=== PATIENT | male | born 1970 | race Caucasian/White ===

== ENCOUNTER 2020-05-07 17:20 | Emergency (ER) | payer SELFPAY ==
[2020-05-07 17:21] VITALS: BP 123/76; PULSE 60; RESP 18; TEMP 36.9; O2SAT 94; BMI 22.9
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
[2020-05-07 18:15] LABS: Basophils # 0.1 10^3/uL (0.0-0.1); Eosinophils # 0.5 10^3/uL (0.0-0.8); Eosinophils % 3.8 %; Hematocrit 46.5 % (42.0-52.0); Hemoglobin 15.6 g/dL (11.7-16.6); Lymphocytes # 3.9 10^3/uL (0.8-4.8); Lymphocytes % 31.4 %; Mean Corpuscular HGB Conc 33.5 g/dL (30.0-36.0); Mean Corpuscular Hemoglobin 29.9 pg (28.0-34.0); Mean Corpuscular Volume 89.3 fL (80-94); Mean Platelet Volume 10.2 fL (7.4-10.4); Monocytes # 1.2 10^3/uL (0.2-0.9); Neutrophils # 6.59 10^3/uL (1.8-7.7); Nucleated Red Blood Cells % 0 %; Platelet Count 302 10^3/cmm (130-400); Red Blood Count 5.21 10^6/uL (4.1-5.3); Red Cell Distribution Width 14.7 % (12.1-15.1); White Blood Count 12.4 10^3/uL (4.0-10.0)
[2020-05-07 18:18] LABS: Alanine Aminotransferase 28 U/L (0-41); Albumin Level 3.8 g/dL (3.5-5.2); Alkaline Phosphatase 83 IU/L (40-130); Blood Urea Nitrogen 19 mg/dL (6-20); Carbon Dioxide 24 mmol/L (22-29); Chloride 106 mmol/L (98-107); Globulin 2.4 g/dL (1.3-4.6); Glomerular Filtration Rate 119.4 mL/min (90-130); Glucose 74 mg/dL (65-115); Osmolality Calculated 283 mOsm/kg (285-295); Sodium 136 mmol/L (136-145); Total Bilirubin 0.2 mg/dL (0.15-1.2); Total Protein 6.2 g/dL (6.6-8.7)
[2020-05-07 18:31] VITALS: RESP 18
[2020-05-07] MEDS: morphine 4 mg/mL SDV 1 mL 2 MG IVP (18:31)
[2020-05-07] MEDS: ondansetron 2 mg/ML SDV 2 mL 4 MG IVP (18:31)
[2020-05-07 18:33] LABS: Anion Gap 9.8 (5-19); Aspartate Amino Transferase 27 U/L (0-40); Potassium 3.8 mmol/L (3.5-5.1)
[2020-05-07 19:06] VITALS: BP 94/66; PULSE 59; RESP 21; O2SAT 98
== END 2020-05-07 18:55 | disposition home or self-care (01) ==
PROVIDERS: Emergency Medicine; Emergency Provider Emergency Medicine
DX: S22.32XA Fracture of one rib, left side, initial encounter for closed fracture (principal); S32.039A Unspecified fracture of third lumbar vertebra, initial encounter for closed fracture; V89.2XXA Person injured in unspecified motor-vehicle accident, traffic, initial encounter
CPT/HCPCS: 70450; 71250; 72125; 73502; 74176; 80053; 85025; 96374; 96375; 99283; J2270; J2405

== ENCOUNTER 2022-01-24 10:02 | Outpatient (CLI) | payer MEDICAID, SELFPAY ==
--- NOTE | 2022-01-24 10:12 | XR_ITS ---
WS: [id number] Chest 2 views, 01/24/2022 Clinical Data: COUGH/TOBACCO DEPENDENCE Comparison: None. Findings: No nodules, masses or effusions are seen. The heart is normal. The pulmonary vascularity is not increased. No pneumonia or pneumothorax is seen. XR/XR chest 2V* [id number] Impression: Negative chest.
== END 2022-01-24 10:03 | disposition home or self-care (01) ==
LOC: LAB 10:06
PROVIDERS: PCP Nurse Practitioner Family; Visit Provider Nurse Practitioner Family
DX: R05.9 Cough, unspecified (principal); F17.200 Nicotine dependence, unspecified, uncomplicated
CPT/HCPCS: 71046

== ENCOUNTER → 2023-04-01 10:38 | Outpatient (BNVA) | payer MEDICAID, SELFPAY | PROVIDERS: PCP Nurse Practitioner Family; Visit Provider Nurse Practitioner Family | DX: R07.9 Chest pain, unspecified (principal) | CPT/HCPCS: 80053; 84484; 85025 ==

== ENCOUNTER 2023-04-16 06:00 | Outpatient (RCR) | payer MEDICAID, SELFPAY | END 2023-04-23 23:59 | disposition home or self-care (01) | LOC: APT 06:00 | PROVIDERS: PCP Nurse Practitioner Family; Visit Provider Nurse Practitioner Family | DX: M54.9 Dorsalgia, unspecified (principal); G89.29 Other chronic pain | CPT/HCPCS: 97161 ==

== ENCOUNTER 2023-04-21 09:09 | Outpatient (CLI) | payer MEDICAID, SELFPAY ==
--- NOTE | 2023-04-21 09:00 | CT_ITS ---
WS: [id number] CT chest wo con [id number] HISTORY: R91.1 - Solitary pulmonary nodule TECHNIQUE: Axial imaging performed through the thorax. Coronal and sagittal reformats are submitted. All CT scans at [facility] use at least one of these dose optimization techniques: automated exposure control; mA and/or kV adjustment per patient size (includes targeted exams where dose is mat ched to clinical indication); or iterative reconstruction. CONTRAST: None DLP: 463.98 mGy.cm COMPARISON: 05/07/2020 Lungs and central airway: Mild pulmonary hyperexpansion. Centrilobular emphysema. There is very mild hazy attenuation in the RIGHT upper lobe which has progressed since the prior study. Mild peripheral interstitial thickening and groundglass attenuation has progressed. Reidentified is the solid nodule along the RIGHT minor fissure measuring 8 mm. Very slightly increased in size since 2020. Reidentifie d is a 5 mm nodule in the RIGHT lower lobe that has slightly increased in size by only 1 to 2 mm sinc e 2020. No additional nodule or mass. Pleura: Normal. No pleural effusion. Heart and pericardium: Normal size heart with no pericardial effusion. Mediastinum and harleen: No adenopathy identified. Sensitivity is decreased without IV contrast. There a re few mediastinal and hilar lymph nodes which are not enlarged. Vessels: Normal size aortic and pulmonary artery. No coronary artery calcifications. Chest wall and lower neck: No soft tissue masses. Upper abdomen: Normal. Osseous structures: Mild increase in thoracic kyphosis. Small Schmorl's nodes defects at several leve ls. No destructive bone lesions. IMPRESSION: 1. RIGHT minor fissure nodule and subcentimeter, noncalcified nodule in the RIGHT lower lobe. Both o f these nodules were present in 05/07/2020. With only minimal increase in size by 1 to 2 mm. Favor the se are probably benign. Recommend additional 12-month chest CT follow-up to document long-term stabil ity. 2. Centrilobular emphysema. 3. Mild hazy attenuation and tree-in-bud opacifications throughout the lungs. Favor this is probably related to respiratory bronchiolitis and history of smoking. No dense pneumonia or consolidation. Mo re pronounced than compared to the prior study. 4. No adenopathy.
== END 2023-04-21 09:10 | disposition home or self-care (01) ==
LOC: RAD 09:09
PROVIDERS: PCP Nurse Practitioner Family; Visit Provider Nurse Practitioner Family
DX: R91.8 Other nonspecific abnormal finding of lung field (principal); J43.2 Centrilobular emphysema
CPT/HCPCS: 71250

== ENCOUNTER → 2023-04-22 14:51 | Outpatient (BNVA) | payer MEDICAID, SELFPAY | PROVIDERS: PCP Nurse Practitioner Family; Referring Provider Nurse Practitioner Family; Visit Provider Orthopaedic Surgery | DX: G89.29 Other chronic pain; M48.062 Spinal stenosis, lumbar region with neurogenic claudication; M51.36 Other intervertebral disc degeneration, lumbar region | CPT/HCPCS: 72110 ==

== ENCOUNTER 2023-04-24 06:00 | Outpatient (RCR) | payer MEDICAID, SELFPAY | END 2023-05-22 23:59 | disposition home or self-care (01) | LOC: APT 06:00 | PROVIDERS: PCP Nurse Practitioner Family; Visit Provider Nurse Practitioner Family | DX: M54.9 Dorsalgia, unspecified (principal); G89.29 Other chronic pain | CPT/HCPCS: 97110; 97530 ==

== ENCOUNTER 2023-05-23 06:00 | Outpatient (RCR) | payer MEDICAID, SELFPAY | END 2023-06-22 23:59 | disposition home or self-care (01) | LOC: APT 06:00 | PROVIDERS: PCP Nurse Practitioner Family; Visit Provider Nurse Practitioner Family | DX: M54.9 Dorsalgia, unspecified (principal); G89.29 Other chronic pain | CPT/HCPCS: 97110; 97530 ==

== ENCOUNTER 2023-12-08 06:00 | Outpatient (CLI) | payer MEDICAID, SELFPAY | END 2023-12-08 06:01 | disposition home or self-care (01) | LOC: RAD 12-29 10:30 | PROVIDERS: PCP Nurse Practitioner; Visit Provider Nurse Practitioner | DX: R06.09 Other forms of dyspnea (principal) | CPT/HCPCS: 80053; 80061; 85025 ==

== ENCOUNTER → 2024-02-12 13:47 | Outpatient (BNVA) | payer MEDICAID, SELFPAY | PROVIDERS: PCP Nurse Practitioner; Visit Provider Internal Medicine | DX: R07.9 Chest pain, unspecified (principal); R06.09 Other forms of dyspnea; F17.210 Nicotine dependence, cigarettes, uncomplicated | CPT/HCPCS: 93005 ==

== ENCOUNTER 2024-02-16 13:30 | Outpatient (CLI) | payer MEDICAID, SELFPAY ==
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
== END 2024-02-16 13:34 | disposition home or self-care (01) ==
PROVIDERS: PCP Nurse Practitioner; Visit Provider Internal Medicine
DX: R06.09 Other forms of dyspnea (principal); R07.9 Chest pain, unspecified
CPT/HCPCS: 93306

== ENCOUNTER → 2024-03-08 08:56 | Outpatient (BNVA) | payer MEDICAID, SELFPAY | PROVIDERS: PCP Nurse Practitioner; Visit Provider Nurse Practitioner | DX: R20.2 Paresthesia of skin (principal); R52 Pain, unspecified; M41.9 Scoliosis, unspecified | CPT/HCPCS: 72072 ==

== ENCOUNTER 2024-03-19 09:49 | Outpatient (CLI) | payer MEDICAID, SELFPAY ==
[2024-03-19 09:56] VITALS: BMI 26.4
--- NOTE | 2024-03-19 10:05 | ECG_ITS ---
AppMesh Test Date: 2024-03-19 Pat Name: Miguel Pinzon Department: Room: Gender: Male Learning Coordinator: : 1970 Requested By: Benton Soares Order Number: [id number] Pauile MD: Benton Soares M.D. Interpretive Statements LEXISCAN: Procedure: At the baseline, the blood pressure was 118/77 mmHg with a heart rate of 68 bpm. The electrocardiogram showed normal sinus rhythm, normal axis with normal ST and T's. The Lexiscan was infused over a period of 20 seconds. A total of 0.4 mg of Lexiscan was infused. The stress phase was continued for a total of 5 minutes. Heart rate was at the end of stress phase was 93 bpm and a blood pressure of 116/73 mmHg. The EKG at the peak infusion revealed normal sinus rhythm with no significant ST-T wave changes. Sestamibi was injected 20 seconds after the Lexiscan infusion. Blood pressure at the end of recovery phase was 105/69 mmHg with a heart rate of 82 bpm. EKG showed PVCs Conclusion: 1. Normal EKG response to Lexiscan infusion 2. No Lexiscan induced chest pain or cardiac arrhythmia. 3. Normal blood pressure and heart rate response. 4. Sestamibi/sestamibi perfusion scan pending; see separate report. Electronically Signed On 03-21-2024 21:00:55 GIN CLERK by Benton Soares M.D. [id number]
--- NOTE | 2024-03-19 10:05 | NMCV_ITS ---
NM katy perf SPECT r/s* [id number] Miguel Pinzon Age: 53 Gender: M : 1970 Exam Date: 03/19/2024 10:51 Ordering Phys: Benton Soares M.D ([email or web address]) Technologist: [email or web address] Lopez Exam Location: [facility] Indications: cp STRESS TEST [facility] IMAGE PROTOCOL Radiopharmaceutical Dose (mCi) Administration Site Administered by Rest: Tc-99m 11 IV Debra Bay, WEB CONTENT PRODUCER Sestamibi Stress:Tc-99m 32.9 IV Debra Bay, WEB CONTENT PRODUCER Sestamibi Rest: 19-Mar-2024 60 Discovery 630 Stress: 19-Mar-2024 30 Discovery 630 0.4mg Lexiscan. Images obtained in supine and prone position. SPECT RESULTS Technical Quality: Good Raw Data Analysis: Normal Image Corrections: No attenuation or motion correction applied Summed Stress Score: 2 Summed Rest Score: 0 Summed Difference Score: 2 PERFUSION FINDINGS Small sized area of reduced radiotracer uptake seen in inferolateral wall that resolves on prone imaging. This is consistent with small area of attenuation artifact. No evidence of ischemia. FUNCTIONAL RESULTS (calculated via Gated SPECT) Stress Image LV EF (%): 72 Stress EDV (mL):109 TID: 0.83 Stress ESV (mL):30 FUNCTIONAL FINDINGS: There is normal left ventricular systolic function. IMPRESSIONS 1. Attenuation artifact seen in inferolateral wall. No evidence of ischemia. 2. LV systolic function is normal Benton Soares MD (Electronically Signed) Final Date: 19 March 2024 18:03 S
[2024-03-19] MEDS: regadenoson 0.4 Mg/5 ml Syringe IVP (11:16)
[2024-03-19] MEDS: aminophylline 25 mg/mL SDV 20 mL IVP ×2 (11:23→11:26)
[2024-03-19 11:29] VITALS: BP 105/69; PULSE 76
== END 2024-03-19 09:50 | disposition home or self-care (01) ==
LOC: CDL 09:51
PROVIDERS: PCP Nurse Practitioner; Visit Provider Internal Medicine
DX: R07.9 Chest pain, unspecified (principal); R06.02 Shortness of breath
CPT/HCPCS: 36415; 78452; 93017; 96374; 96375; A9500; J0280; J2785

== ENCOUNTER → 2024-06-11 08:05 | Outpatient (BNVA) | payer MEDICAID, SELFPAY | PROVIDERS: PCP Nurse Practitioner; Visit Provider Nurse Practitioner | DX: Z12.5 Encounter for screening for malignant neoplasm of prostate (principal); J43.2 Centrilobular emphysema; Z13.6 Encounter for screening for cardiovascular disorders | CPT/HCPCS: 80053; 80061; 85025; G0103 ==

== ENCOUNTER 2024-06-29 07:16 | Outpatient (CLI) | payer MEDICAID, SELFPAY ==
--- NOTE | 2024-06-29 07:30 | CT_ITS ---
WS: [id number] CT CHEST TECHNIQUE: Noncontrast CT of the chest with coronal and sagittal reformatted images. CLINICAL INFORMATION: R91.8 - Other nonspecific abnormal finding of lung field COMPARISON: 04/21/2023 DLP: 440.[address] scans at [facility] use at least one of these dose optimization techniques: automated exposure control; mA and/or kV adjustment per patient size (includes targeted exams where dose is matched to clinical indication); or iterative reconstruction. FINDINGS: Stable 5 mm nodule RIGHT lower lobe. Stable RIGHT perifissural nodule measuring 8 mm. No new suspicious pulmonary parenchymal normalities. Chronic emphysematous changes. Normal caliber thoracic aorta. Calcified LEFT hilar and subcarinal lymph nodes. No axillary lymphadenopathy. Small esophageal hiatal hernia. Adrenal glands are normal. Splenic granulomas. CT/CT chest wo con [id number] IMPRESSION: 1. Stable 5 mm nodule RIGHT lower lobe. Stable RIGHT perifissural nodule 2. No mediastinal or hilar lymphadenopathy. 3. Stable moderate chronic emphysematous changes
== END 2024-06-29 07:17 | disposition home or self-care (01) ==
PROVIDERS: PCP Nurse Practitioner; Visit Provider Nurse Practitioner
DX: R91.8 Other nonspecific abnormal finding of lung field (principal); J43.2 Centrilobular emphysema; I89.8 Other specified noninfective disorders of lymphatic vessels and lymph nodes; K44.9 Diaphragmatic hernia without obstruction or gangrene; D73.89 Other diseases of spleen
CPT/HCPCS: 71250

== ENCOUNTER 2024-09-13 06:54 | Emergency (ER) | payer MEDICAID, SELFPAY ==
[2024-09-13 07:02] VITALS: BP 157/91; PULSE 80; RESP 18; TEMP 36.6; O2SAT 95; BMI 28.8
--- NOTE | 2024-09-13 07:04 | ED_ITS ---
HPI - Back Pain/Injury 2 General: Chief Complaint: Back Pain/Injury Stated Complaint: Low back Pain Time Seen by Provider: 09/13/24 07:01 History of Present Illness: 54-year-old male presents emergency room with complaints of low back pain/left flank pain. Started yesterday. Has had nausea vomiting has had some difficulty with urination at times no fall or direct injury. No hematuria no fever sweats or chills Associated symptoms: Deny abdominal pain, chills, dysuria, fever(s) or urinary urgency Related Data Previous Rx's ?Medication ?Instructions ?Recorded albuterol sulfate 90 mcg/actuation 2 puff inhalation Q 6H PRN 06/09/24 aerosol inhaler shortness of breath or wheez ing #6.7 grams fluticasone furoate 100 1 inh inhalation Q24H #30 ea 06/24/24 mcg/actuation blister powder for inhalation (Arnuity Ellipta) umeclidinium 62.5 mcg-vilanterol 1 inh inhalation LORI Y #60 ea 06/24/24 25 mcg/actuation powdr for inhalation (Anoro Ellipta) amoxicillin 875 mg-potassium 1 tab PO BID #14 tabs clavulanate 125 mg tablet promethazine 25 mg tablet 25 mg PO Q6H PRN nausea and 09/13/24 vomiting #20 tabs Allergies Allergy/AdvReac Type Severity Reaction Status Date / Time No Known Allergies Allergy Verified 06/09/24 16:46 Review of Systems 2 Const: Denies: fever(s) or chills Card: Denies: chest pain Resp: Denies: dyspnea GI: Denies: abdominal pain : Reports: flank pain; Denies: dysuria, urinary frequency or urinary urgency Musc: Denies: neck pain or back pain Skin/Breast: Denies: rash PFSH ED 2 PFSH: Medical History Cigarette smoker Pulmonary emphysema Surgical History History of appendectomy History of hip surgery left hip Family History Mother Cancer Grandmother Cancer Brother Cancer Social History (Reviewed 09/13/24 @ 13:16 by A[place]IN [place] Smoking and tobacco/nicotine status: current every day tobacco/nicotine user Second hand smoke exposure: Yes Alcohol intake: former Substance/Drug Use: former Adopted: No Caregiver/support person: No Lives independently: Yes Household members: none Housing: Manufactured/Mobile home Marital status: Number of children: 1 Highest education level completed: 11th Grade service: No Current occupational status: unemployed Physical Exam 2 Const: GENERAL APPEARANCE: cooperative ORIENTATION/CONSCIOUSNESS: Yes awake, Yes oriented to person, Yes oriented to place and Yes oriented to time HENMT: COMMON NORMALS: normocephalic, atraumatic and hearing grossly normal bilaterally HEAD & SCALP: normocephalic and atraumatic Resp: COMMON NORMALS: normal respiratory effort, No retractions, No use of accessory muscles and clear to auscultation bilaterally AUSCULTATION: clear to auscultation bilaterally Cardio: COMMON NORMALS: regular rate, regular rhythm and No murmurs present (Cardio) RATE: regular rate RHYTHM: regular rhythm GI: COMMON NORMALS: Soft to palpation and No hepatosplenomegaly present A USCULTATION: Yes normoactive bowel sounds PALPATION: Yes Soft to palpation, No Tenderness to palpation present (GI), No Guarding due to palpation present (GI) and Yes No hepatosplenomegaly present Extremity: COMMON NORMALS: normal to inspection, capillary refill normal, no clubbing, cyanosis or edema, no calf tenderness and no pedal edema Neuro: SENSORIUM/ORIENTATION: Yes oriented to person, Yes oriented to place and Yes oriented to time Skin: COMMON NORMALS: no rashes or lesions noted GENERAL SKIN EXAM: no rashes or lesions noted Course 2 Vital Signs: Vital signs: Vital Signs Temperature 97.8 F 09/13/24 07:02 Pulse Rate 76 09/13/24 11:12 Respiratory Rate 18 09/13/24 07:02 Blood Pressure 120/88 09/13/24 11:12 Pulse Oximetry 98 09/13/24 11:12 Oxygen Delivery Me thod Room Air 09/13/24 08:14 MDM - Back Pain/Injury Medical Decision Making Does have some musculoskeletal component to this he is able to improved little by not moving around much. CT did not show signs of nephrolithiasis he has large cyst on his kidneys. Urine did not show any cystitis. He shows some signs of a colitis on the CT. Will start him on Augmentin clear liquid diet for 24 to 48 hours and then follow-up with primary care if not improving Medical Records I reviewed the patient's medical records. Labs I reviewed the patient's lab results. 09/13/24 07:10 09/13/24 07:10 Radiology Impressions Abdomen/Pelvis CT 09/13/24 07:18 IMPRESSION: 1. The bladder is incompletely fluid filled for evaluation which may exagerate the wall thickness. This can also be seen with urinary tract inflammatory sequela. 2. No interval radiopaque obstructive urinary calculus or hydronephrosis is appreciated. 3. There are some areas of colonic under distension which may be peristaltic related. Some sequela of colitis could also present in this fashion for example including of the descending colon, rectosigmoid with no fluid collection or acute inflammatory stranding changes currently appreciated. 4. In the interval, there appears to be some mixed sclerosis about the left femoral head suggestive avascular necrosis. Consider MRI of the hip. Laboratory Results WBC 17.57 10^3/uL (3.29-11.43) H 09/13/24 07:10 RBC 5.40 10^6/uL (3.85-5.65) 09/13/24 07:10 Hgb 16.30 g/dL (11.27-16.99) 09/13/24 07:10 Hct 48.5 % (37-53) 09/13/24 07:10 MCV 89.8 fl (82-101) 09/13/24 07:10 MCH 30.2 pg (27-33) 09/13/24 07:10 MCHC 33.6 g/dL (30-55) 09/13/24 07:10 RDW 14.9 % (12.1-15.1) 09/13/24 07:10 Plt Count 279 10^3/cmm (157-399) 09/13/24 07:10 MPV 10.6 fL (7.4-10.4) H 09/13/24 07:10 Neut % (Auto) 75.0 % 09/13/24 07:10 Lymph % (Auto) 15.9 % 09/13/24 07:10 Bracken % (Auto) 7.3 % 09/13/24 07:10 Eos % (Auto) 0.6 % 09/13/24 07:10 Baso % (Auto) 0.6 % 09/13/24 07:10 Neut # (Auto) 13.16 10^3/uL (1.8-7.7) H 09/13/24 07:10 Lymph # (Auto) 2.8 10^3/uL (0.8-4.8) 09/13/24 07:10 Bracken # (Auto) 1.3 10^3/uL (0.2-0.9) H 09/13/24 07:10 Eos # (Auto) 0.1 10^3/uL (0.0-0.8) 09/13/24 07:10 Baso # (Auto) 0.1 10^3/uL (0.0-0.1) 09/13/24 07:10 Nucleated RBC % (auto) 0 % 09/13/24 07:10 Nucleated RBCs # 0.0 /100WBC 09/13/24 07:10 Sodium 135 mmol/L (136-145) L 09/13/24 07:10 Potassium 4.5 mmol/L (3.5-5.1) 09/13/24 07:10 Chloride 99 mmol/L (98-107) 09/13/24 07:10 Carbon Dioxide 23 mmol/L (22-29) 09/13/24 07:10 Anion Gap 17.5 (5-19) 09/13/24 07:10 BUN 13 mg/dL (6-20) 09/13/24 07:10 Creatinine 0.7 mg/dL (0.7-1.2) 09/13/24 07:10 GFR Calculation 117.5 mL/min (90-130) 09/13/24 07:10 Glucose 125 mg/dL (65-115) H 09/13/24 07:10 Calculated Osmolality 282 mOsm/kg (285-295) L 09/13/24 07:10 Calcium 9.4 mg/dL (8.5-10.5) 09/13/24 07:10 Total Bilirubin 0.4 mg/dL (0.15-1.2) 09/13/24 07:10 AST 25 U/L (0-40) 09/13/24 07:10 ALT 25 U/L (0-41) 09/13/24 07:10 Alkaline Phosphatase 112 U/L (40-130) 09/13/24 07:10 Total Protein 8.3 g/dL (6.6-8.7) 09/13/24 07:10 Albumin 4.3 g/dL (3.5-5.2) 09/13/24 07:10 Globulin 4.0 g/dL (1.3-4.6) 09/13/24 07:10 Urine Color Yellow (Yellow) 09/13/24 09:30 Urine Appearance Clear (CLEAR) 09/13/24 09:30 Urine pH 6.0 (5-7) 09/13/24 09:30 Ur Specific Lehr 1.022 (1.005-1.030) 09/13/24 09:30 Urine Protein 1+ (Negative) A 09/13/24 09:30 Urine Glucose (UA) Negative (Normal) 09/13/24 09:30 Urine Ketones Trace (Negative) 09/13/24 09:30 Urine Blood Negative (Negative) 09/13/24 09:30 Urine Nitrate Negative (Negative) 09/13/24 09:30 Urine Bilirubin Negative (Negative) 09/13/24 09:30 Urine Urobilinogen 1.0 mg/dL (Negative) 09/13/24 09:30 Ur Leukocyte Esterase Negative (Negative) 09/13/24 09:30 Urine RBC 3-5 /hpf (0-2) 09/13/24 09:30 Urine WBC 0-5 /hpf (0-5) 09/13/24 09:30 Ur Squamous Epith Cells 0-5 /hpf (0-5) 09/13/24 09:30 Amorphous Sediment Not Reportable 09/13/24 09:30 Urine Bacteria None seen /hpf (NONE) 09/13/24 09:30 Hyaline Casts 2.05 /lpf 09/13/24 09:30 All radiology interpretation(s) finalized by discharge Discharge Plan Discharge Patient Disposition: Home Clinical Impression: Colitis Condition: Stable Prescriptions: New amoxicillin-pot clavulanate 875-125 mg tablet 1 tab PO BID Qty: 14 0RF promethazine 25 mg tablet 25 mg PO Q6H PRN (Reason: nausea and vomiting) Qty: 20 0RF No Action albuterol sulfate 90 mcg/actuation HFA aerosol inhaler 2 puff inhalation Q6H PRN (Reason: shortness of breath or wheezing) Qty: 6.7 2RF Arnuity Ellipta 100 mcg/actuation blister with device 1 inh inhalation Q24H Qty: 30 2RF Anoro Ellipta 62.5-25 mcg/actuation blister with device 1 inh inhalation DAILY Qty: 60 2RF Discharge Orders: Discharge ED (Routine); Ordered 09/13/24 Ordered By: Jason Wood Referrals: Yoel Garcia, SERVICE DESK MANAGER-C [Primary Care Provider, Family Practice] Discharge Diet: Clear Liquid Discharge Activity: Resume usual activity Patient Instructions: Opioid Safety, Pain Management Activity Restrictions/Additional Instructions: Thank you for choosing [facility] for your healthcare needs today. It is very important that you follow up as instructed or that you return to the Emergency Department should you have concerns or if your condition changes or worsens in any way. Clear liquid diet for the next 3 to 4 days and advance as tolerated. Print Language: South Sudanese Coding Level of Care Code ED Order Department Supervisor for Balta Aguilar
--- NOTE | 2024-09-13 07:18 | CTR_ITS ---
PROCEDURE INFORMATION: Exam: CT Abdomen And Pelvis Without Contrast Exam date and time: 09/13/2024 7:31 AM Age: 54 years old Clinical indication: Nausea and vomiting and other: Dysuria; Abdominal pain; Prior surgery; Surgery date: 6+ months; Surgery type: Appy; C/O left flank pain with n/v and dysuria. No history of recent trauma or surgery is otherwise provided. TECHNIQUE: Imaging protocol: Computed tomography of the abdomen and pelvis without contrast. 548image(s) are provided. Radiation optimization: All CT scans at this facility use at least one of these dose optimization techniques: automated exposure control; mA and/or kV adjustment per patient size (includes targeted exams where dose is matched to clinical indication); or iterative reconstruction. Other technique: Axial images are available with sagittal and coronal reconstruction views. Automated dose exposure control is utilized. The DLP is 601.5. COMPARISON: 1. CT chest wo con [id number] 06/29/2024 7:[address] [place] [id number] 05/07/2020 6:30 PM RADIATION DOSE METRICS: Total DLP (mGy-cm): 622.29 FINDINGS: Lungs: No lobar consolidation is appreciated.There is some subsegmental atelectasis versus reticulonodular appearance similarly demonstrated corresponding with the previous description. This includes some granulomatous type calcifications similar overall. There is some chronic air trapping appearance along with some bleb related changes similar. Heart: No significant pericardial fluid collection is appreciated. Liver: There appears to be some subtle low-density of the liver overall. Gallbladder and biliary ducts: There appears to be some trace gallbladder sludge. Pancreas: No pancreatic ductal dilatation or calculus is currently appreciated. Spleen: There are splenic granulomatous type calcifications present. Adrenal glands: The adrenal glands appears similar overall. Kidneys and ureters: No radiopaque obstructive calculus or hydronephrosis appreciated. Stomach and bowel: Some aspects of the colon are undistended. This may also be peristaltic related.There is some stool present limiting mucosal detail evaluation.The bowel gas pattern appears nonobstructive. There is a small sliding-type hiatal hernia demonstrated with slight gastroesophageal fold thickening. Appendix: Clinical history provided of appendectomy with an adjacent clip. Intraperitoneal space: No free air or significant free fluid collections are appreciated. Vasculature: No abdominal aortic saccular aneurysmal dilatation is appreciated. Lymph nodes: There are subcentimeter predominant para-aortic and mesenteric lymph nodes overall present. There appear to be some reactive groin, inguinal lymph nodes overall. Urinary bladder: The bladder is incompletely fluid filled for evaluation which may exagerate the wall thickness. Reproductive: There appears to be some slight prostate hypertrophy. Bones/joints: Osseous alignment is maintained. No interval displaced fracture or dislocation is appreciated.There are some degenerative changes of the hips and spine overall present. In the interval however there appears to be some mixed lucent, sclerotic appearance of the left femoral head predominantly and could be seen with processes including avascular necrosis. There is also some cortical thickening, spurring of the left hip acetabular margin including posteriorly which can also be seen with processes including advanced degeneration or previous injury with repetitive microtrauma. Soft tissues: No radiopaque foreign body or subcutaneous emphysema is appreciated. No subcutaneous fluid collections are appreciated. There is some prominent lipomatous content of the inguinal canals right more so than left with no interval bowel or fluid currently appreciated. There is some motion artifact present. No other significant interval changes are appreciated. CT/CT kidney stone [id number] IMPRESSION: 1. The bladder is incompletely fluid filled for evaluation which may exagerate the wall thickness. This can also be seen with urinary tract inflammatory sequela. 2. No interval radiopaque obstructive urinary calculus or hydronephrosis is appreciated. 3. There are some areas of colonic under distension which may be peristaltic related. Some sequela of colitis could also present in this fashion for example including of the descending colon, rectosigmoid with no fluid collection or acute inflammatory stranding changes currently appreciated. 4. In the interval, there appears to be some mixed sclerosis about the left femoral head suggestive avascular necrosis. Consider MRI of the hip.
[2024-09-13] MEDS: ketorolac 30 mg/mL INJ IVP (07:21)
[2024-09-13] MEDS: methylPREDNISolone sod succ 125 mg/2 mL INJ IVP (07:21)
[2024-09-13] MEDS: orphenadrine 30 mg/mL Inj 2 mL 60 MG IM (07:22)
[2024-09-13 07:35] VITALS: BP 157/91
[2024-09-13 07:38] LABS: Alanine Aminotransferase 25 U/L (0-41); Albumin Level 4.3 g/dL (3.5-5.2); Alkaline Phosphatase 112 U/L (40-130); Basophils # 0.1 10^3/uL (0.0-0.1); Basophils % 0.6 %; Blood Urea Nitrogen 13 mg/dL (6-20); Calcium 9.4 mg/dL (8.5-10.5); Carbon Dioxide 23 mmol/L (22-29); Chloride 99 mmol/L (98-107); Creatinine Clr Calc Pharmacy 128.8519; Eosinophils # 0.1 10^3/uL (0.0-0.8); Eosinophils % 0.6 %; Glomerular Filtration Rate 117.5 mL/min (90-130); Glucose 125 mg/dL (65-115); Hematocrit 48.5 % (37-53); Lymphocytes # 2.8 10^3/uL (0.8-4.8); Lymphocytes % 15.9 %; Mean Corpuscular HGB Conc 33.6 g/dL (30-55); Mean Corpuscular Hemoglobin 30.2 pg (27-33); Mean Corpuscular Volume 89.8 fl (82-101); Mean Platelet Volume 10.6 fL (7.4-10.4); Monocytes # 1.3 10^3/uL (0.2-0.9); Monocytes % 7.3 %; Neutrophils # 13.16 10^3/uL (1.8-7.7); Nucleated Red Blood Cells % 0 %; Osmolality Calculated 282 mOsm/kg (285-295); Platelet Count 279 10^3/cmm (157-399); Red Cell Distribution Width 14.9 % (12.1-15.1); Sodium 135 mmol/L (136-145); Total Bilirubin 0.4 mg/dL (0.15-1.2); Total Protein 8.3 g/dL (6.6-8.7); White Blood Count 17.57 10^3/uL (3.29-11.43)
[2024-09-13] MEDS: morphine 4 mg/mL SDV 1 mL IVP (07:42)
[2024-09-13 07:44] LABS: Anion Gap 17.5 (5-19); Aspartate Amino Transferase 25 U/L (0-40); Potassium 4.5 mmol/L (3.5-5.1)
[2024-09-13 08:14] VITALS: BP 137/84; PULSE 57; O2SAT 91
[2024-09-13 09:44] VITALS: BP 127/92
[2024-09-13 09:52] LABS: Bilirubin Urine Negative (Negative); Blood Urine Negative (Negative); Glucose Urine UA Negative (Normal); Ketones Urine Trace (Negative); Leukocyte Esterase Urine Negative (Negative); Nitrate Urine Negative (Negative); Protein Urine 1+ (Negative); Specific Gravity, Urine 1.022 (1.005-1.030); Urine Appearance Clear (CLEAR); Urine Color Yellow (Yellow)
[2024-09-13 09:57] LABS: Add Urine Microscopic? YES; Bacteria Urine None Seen /hpf; Hyaline Casts Urine 2.05 /lpf; Squamous Epithelial Cell Urine 0-5 /hpf (0-5); WBC Urine 0-5 /hpf (0-5)
[2024-09-13 10:19] VITALS: BP 138/86
[2024-09-13 11:12] VITALS: BP 120/88; PULSE 76; O2SAT 98
== END 2024-09-13 11:12 | disposition home or self-care (01) ==
PROVIDERS: Emergency Provider Family Medicine; PCP Nurse Practitioner
DX: K52.9 Noninfective gastroenteritis and colitis, unspecified (principal); Z72.0 Tobacco use
CPT/HCPCS: 36415; 74176; 80053; 81001; 85025; 96374; 96375; 99285; J1885; J2270; J2360; J2919

== ENCOUNTER 2024-09-29 08:45 | Outpatient (CLI) | payer OTHER, SELFPAY ==
--- NOTE | 2024-09-29 08:55 | XR_ITS ---
WS: [id number] Exam: XR hip LT 2-3V wo/w pel* [id number] Date/Time of Exam: 09/29/2024 9:01 AM Reason For Exam: HIP PAIN Comparison 05/07/2020. No fracture noted. The joint compartment is relatively well-maintained. Normal soft tissues. No change since prior study. XR/XR hip LT 2-3V wo/w pel* [id number] IMPRESSION: 1. No fracture or other significant finding. Stable.
== END 2024-09-29 08:46 | disposition home or self-care (01) ==
LOC: RAD 08:49
PROVIDERS: PCP Nurse Practitioner; Visit Provider Internal Medicine
DX: M25.551 Pain in right hip (principal)
CPT/HCPCS: 73502

== ENCOUNTER → 2024-10-07 14:40 | Outpatient (BNVA) | payer OTHER, SELFPAY | PROVIDERS: PCP Nurse Practitioner; Visit Provider Nurse Practitioner | DX: J43.2 Centrilobular emphysema (principal) | CPT/HCPCS: 80048; 85025 ==

== ENCOUNTER → 2024-10-11 13:27 | Outpatient (BNVA) | payer OTHER, SELFPAY | PROVIDERS: PCP Nurse Practitioner; Visit Provider Nurse Practitioner | DX: K59.01 Slow transit constipation (principal) | CPT/HCPCS: 83630; 87045; 87177; 87209; 87427; 87449 ==

== ENCOUNTER 2024-10-13 08:51 | Outpatient (CLI) | payer OTHER, SELFPAY ==
[2024-10-13 09:14] VITALS: PULSE 69; RESP 18; O2SAT 96
--- NOTE | 2024-10-13 10:02 | XR_ITS ---
WS: [id number] Left hip, 2 views, AP pelvis, 10/13/2024 Clinical Data: LEFT HIP PAIN Comparison: Pelvis and left hip, 09/29/2024 Findings: No fractures or dislocations are seen. The left hip joint shows no erosion, narrowing, sclerosis or fragmentation of the left femoral head. The right hip is normal. The soft tissues are not remarkable. The adjacent pelvis is normal. There is a surgical clip to the right of the L4-L5 interspace. XR/XR hip LT 2-3V wo/w pel* [id number] Impression: Negative left hip and pelvis.
== END 2024-10-13 08:52 | disposition home or self-care (01) ==
PROVIDERS: PCP Nurse Practitioner; Visit Provider Internal Medicine
DX: Z02.71 Encounter for disability determination (principal); R06.00 Dyspnea, unspecified; Z98.890 Other specified postprocedural states
CPT/HCPCS: 73502; 94060; 94618; J7613

== ENCOUNTER → 2024-10-28 14:55 | Outpatient (BNVA) | payer MEDICAID, SELFPAY | PROVIDERS: PCP Nurse Practitioner; Visit Provider Nurse Practitioner | DX: R73.9 Hyperglycemia, unspecified (principal) | CPT/HCPCS: 83036 ==

== ENCOUNTER 2024-12-08 10:57 | Outpatient (CLI) | payer OTHER, SELFPAY | END 2024-12-08 10:58 | disposition home or self-care (01) | PROVIDERS: PCP Nurse Practitioner; Visit Provider Internal Medicine | DX: Z02.71 Encounter for disability determination (principal); R06.9 Unspecified abnormalities of breathing; J44.9 Chronic obstructive pulmonary disease, unspecified | CPT/HCPCS: 94729 ==

== ENCOUNTER 2025-02-14 10:32 | Emergency (ER) | payer MEDICAID, SELFPAY ==
[2025-02-14 10:58] VITALS: BP 114/76; PULSE 88; RESP 16; TEMP 37; O2SAT 98; BMI 28.8
--- NOTE | 2025-02-14 11:02 | USR_ITS ---
PROCEDURE INFORMATION: Exam: US Duplex Right Lower Extremity Arteries Or Arterial Bypass Grafts Exam date and time: 02/14/2025 11:45 AM Age: 54 years old Clinical indication: Pain; Foot; Right; Additional info: Leg pain TECHNIQUE: Imaging protocol: Right Real-time duplex scan of the arteries or arterial bypass grafts of the right lower extremity with 2-D merrill scale, color Doppler flow and spectral waveform analysis. Images documented and saved. COMPARISON: CT kidney stone [id number] 09/13/2024 7:31 AM FINDINGS: Right common femoral artery: No occlusion or significant stenosis. Normal waveform. No pseudoaneurysm in the inguinal region. Right superficial femoral artery: No occlusion or significant stenosis. Normal waveform. Right popliteal artery: Diminished velocity. Monophasic waveform. Right calf/foot arteries: Occluded right posterior tibial and dorsalis pedis arteries. Nonvisualization of the right anterior tibial and peroneal arteries. Soft tissues: No hematoma or [place]. US/[place] [id number] IMPRESSION: 1. 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 2. Nonvisualization of the right anterior tibial and peroneal arteries. 3. Moderate stenosis of the right distal femoral/proximal popliteal artery.
--- NOTE | 2025-02-14 11:07 | ED_ITS ---
HPI - Extremity Problem 2 General: Chief complaint: Extremity Problem,Nontraumatic Stated complaint: R foot swelling, pain Time Seen by Provider: 02/14/25 10:59 Source: patient Mode of arrival: ambulatory Limitations: no limitations History of Present Illness: 54-year-old male states he has been havi ng a burning sensation to his right foot on the dorsal side going on today. States it is a stinging pain he rates a 6 out of 10 states it is improved with elevation denies any fevers denies any injuries. Denies any history of diabetes or neuropathy Related Data Home Medications ?Medication ?Instructions ?Recorded ?Confirmed polyethylene glycol 3350 17 17 g PO DAILY 02/14/25 gram/dose oral powder (Miralax) Previous Rx's ?Medication ?Instructions ?Recorded nystatin 100,000 unit/gram topical 1 applic topical BI D PRN itching 10/07/24 cream #30 grams acetaminophen 650 mg 650 mg PO Q12H #60 tabs 01/22 05/18 tablet,extended release (Tylenol Arthritis Pain) albuterol sulfate 90 mcg/actuation 2 puff inhalation Q 6H PRN 02/02/25 aerosol inhaler shortness of breath or wheez ing #6.7 grams duloxetine 20 mg capsule,delayed 20 mg PO BID #60 caps 02/02/25 release fluticasone furoate 100 1 inh inhalation Q24H #30 ea 02/02/25 mcg/actuation blister powder for inhalation (Arnuity Ellipta) tamsulosin 0.4 mg capsule (Flomax) 0.4 mg PO DAILY #30 caps 02/02/25 umeclidinium 62.5 mcg-vilanterol 1 inh inhalation LORI Y #60 ea 02/02/25 25 mcg/actuation powdr for inhalation (Anoro Ellipta) Allergies Allergy/AdvReac Type Severity Reaction Status Date / Time No Known Allergies Allergy Verified 02/02/25 14:07 Review of Systems 2 Musc: Reports: extremity pain PFSH ED 2 PFSH: Medical History (Updated 02/14/25 @ 14:28 by Rayshawn Kay MD) Cigarette smoker Pulmonary emphysema Surgical History History of appendectomy History of hip surgery left hip Family History Mother Cancer Grandmother Cancer Brother Cancer Social History Smoking and tobacco/nicotine status: current every day tobacco/nicotine user Second hand smoke exposure: Yes Alcohol intake: former Substance/Drug Use: former Adopted: No Caregiver/support person: No Lives independently: Yes Household members: none Housing: Manufactured/Mobile home Marital status: Number of children: 1 Highest education level completed: 11th Grade service: No Current occupational status: unemployed Current occupational exposures/hazards: No Do you think of yourself as: Straight/Heterosexual Current gender identity: Male Physical Exam 2 Const: COMMON NORMALS: no acute distress, patient oriented x3 and healthy appearing HENMT: COMMON NORMALS: normocephalic and atraumatic HEAD & SCALP: n ormocephalic and atraumatic Neck/C-Spine: COMMON NORMALS: full ROM and supple Chest: COMMONS NORMALS: normal inspection of the chest Resp: COMMON NORMALS: normal respiratory effort Cardio: COMMON NORMALS: regular rate RATE: regular rate Extremity: COMMON NORMALS: normal to inspection and full ROM NARRATIVE EXTREMITY EXAM: tenderness over right foot no obvious deformity Neuro: COMMON NORMALS: patient oriented x3, moves all extremities and no focal motor deficits Psych: COMMON NORMALS: mental status grossly normal, Normal thought process present and cooperative THOUGHT PROCESS: Normal thought process present Skin: COMMON NORMALS: no rashes or lesions noted and no wounds GENERAL SKIN EXAM: no rashes or lesions noted Course 2 Vital Signs: Vital signs: Vital Signs Temperature 98.6 F 02/14/25 10:58 Pulse Rate 56 L 02/14/25 13:30 Respiratory Rate 18 02/14/25 12:56 Blood Pressure 101/56 02/14/25 13:30 Pulse Oximetry 91 02/14/25 13:30 Oxygen Delivery Me thod Room Air 02/14/25 13:30 MDM - Extremity (Nontraumatic) Medical Decision Making Patient presents with pain in his right foot hear his toes were called was not able to find pulses his right foot got a ultrasound arterial showed occluded right PT and DP. I did speak to vascular surgeon at [facility] got a CTA runoff that he did review and he recommended transfer from ER to ER. I did start him on a heparin drip here. I spoke to ER physician Dr. Souza and will transfer for higher level care for vascular surgery. I did speak to video tape editor here Dr. Benson who recommended transfer for vascular critical care time 45 min The high probability of a clinically significant, sudden or life threatening deterioration of the patient's vascsystem(s) required my full and direct attention, intervention and personal management. The critical care time is as shown. This time is in addition to time spent performing any reported procedures but includes the following: [x] Data and vital sign review and interpretation [x] Patient assessment, examination and intervention [x] Documentation [x] Medication orders and management Medical Records I reviewed the patient's medical records. Lab Data I reviewed the patient's lab results. 02/14/25 12:23 02/14/25 12:23 Radiology Impressions Duplex Scan Lower Extremity Artery 02/14/25 11:02 IMPRESSION: 1. 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 2. Nonvisualization of the right anterior tibial and peroneal arteries. 3. Moderate stenosis of the right distal femoral/proximal popliteal artery. Laboratory Results WBC 16.27 10^3/uL (3.29-11.43) H 02/14/25 12:23 RBC 5.40 10^6/uL (3.85-5.65) 02/14/25 12:23 Hgb 16.00 g/dL (11.27-16.99) 02/14/25 12:23 Hct 46.8 % (37-53) 02/14/25 12:23 MCV 86.7 fl (82-101) 02/14/25 12:23 MCH 29.6 pg (27-33) 02/14/25 12:23 MCHC 34.2 g/dL (30-55) 02/14/25 12:23 RDW 15.1 % (12.1-15.1) 02/14/25 12:23 Plt Count 262 10^3/cmm (157-399) 02/14/25 12:23 MPV 9.1 fL (7.4-10.4) 02/14/25 12:23 Neut % (Auto) 73.6 % 02/14/25 12:23 Lymph % (Auto) 14.1 % 02/14/25 12:23 [place] % (Auto) 9.1 % 02/14/25 12:23 Eos % (Auto) 1.7 % 02/14/25 12:23 Baso % (Auto) 0.8 % 02/14/25 12:23 Neut # (Auto) 11.96 10^3/uL (1.8-7.7) H 02/14/25 12:23 Lymph # (Auto) 2.3 10^3/uL (0.8-4.8) 02/14/25 12:23 [place] # (Auto) 1.5 10^3/uL (0.2-0.9) H 02/14/25 12:23 Eos # (Auto) 0.3 10^3/uL (0.0-0.8) 02/14/25 12:23 Baso # (Auto) 0.1 10^3/uL (0.0-0.1) 02/14/25 12:23 Nucleated RBC % (auto) 0 % 02/14/25 12:23 Nucleated RBCs # 0.0 /100WBC 02/14/25 12:23 PT 13.60 SECONDS (12.1-14.9) 02/14/25 12:23 INR 0.98 (0.8-1.2) 02/14/25 12:23 Sodium 138 mmol/L (136-145) 02/14/25 12:23 Potassium 4.2 mmol/L (3.5-5.1) 02/14/25 12:23 Chloride 107 mmol/L (98-107) 02/14/25 12:23 Carbon Dioxide 23 mmol/L (22-29) 02/14/25 12:23 Anion Gap 12.2 (5-19) 02/14/25 12:23 BUN 13 mg/dL (6-20) 02/14/25 12:23 Creatinine 0.7 mg/dL (0.7-1.2) 02/14/25 12:23 GFR Calculation 117.5 mL/min (90-130) 02/14/25 12:23 Glucose 96 mg/dL (65-115) 02/14/25 12:23 POC Glucose 121 mg/dL (70-110) H 02/14/25 11:11 Calculated Osmolality 286 mOsm/kg (285-295) 02/14/25 12:23 Calcium 8.1 mg/dL (8.5-10.5) L 02/14/25 12:23 Total Bilirubin 0.4 mg/dL (0.15-1.2) 02/14/25 12:23 AST 19 U/L (0-40) 02/14/25 12:23 ALT 22 U/L (0-41) 02/14/25 12:23 Alkaline Phosphatase 84 U/L (40-130) 02/14/25 12:23 Total Protein 6.7 g/dL (6.6-8.7) 02/14/25 12:23 Albumin 3.9 g/dL (3.5-5.2) 02/14/25 12:23 Globulin 2.8 g/dL (1.3-4.6) 02/14/25 12:23 All radiology interpretation(s) finalized by discharge Critical Care Time 2 Critical Care Time: Critical Care Time: Yes Total Critical Care Time: 45 Attestation: The high probability of a clinically significant, sudden or life threatening deterioration of the patient's vascsystem(s) required my full and direct attention, intervention and personal management. The critical care time is as shown. This time is in addition to time spent performing any reported procedures but includes the following: [x] Data and vital sign review and interpretation [x] Patient assessment, examination and intervention [x] Documentation [x] Medication orders and management Discharge Plan Discharge Patient Disposition: Xfer Short-Term Hosp Clinical Impression: Arterial occlusion, lower extremity Condition: Stable Referrals: Yoel Garcia, SHOW DESIGN SUPERVISOR-C [Primary Care Provider, Family Practice] Print Language: Palauan Coding Level of Care Code ED Operater for Balta Aguilar
[2025-02-14] MEDS: HYDROcodone-acetaminophen 5-325 mg Tablet 1 TAB PO (11:10)
--- NOTE | 2025-02-14 12:11 | CTR_ITS ---
PROCEDURE INFORMATION: Exam: CTA Abdominal Aorta and Bilateral Lower Extremities (Run-off) With Contrast Exam date and time: 02/14/2025 12:25 PM Age: 54 years old Clinical indication: Other: Right leg pain TECHNIQUE: Imaging protocol: Computed tomographic angiography of the of the abdominal aorta, pelvis and bilateral lower extremities with contrast. 3D rendering (Not supervised by radiologist): MIP and/or 3D reconstructed images were created by the technologist. Radiation optimization: All CT scans at this facility use at least one of these dose optimization techniques: automated exposure control; mA and/or kV adjustment per patient size (includes targeted exams where dose is matched to clinical indication); or iterative reconstruction. Contrast material: [id number]; Contrast volume: 120 ml; Contrast route: INTRAVENOUS (IV); COMPARISON: CT kidney stone [id number] 09/13/2024 7:31 AM RADIATION DOSE METRICS: Total DLP (mGy-cm): 767.2 FINDINGS: Aorta: No aortic aneurysm. No aortic dissection. Celiac and mesenteric arteries: No occlusion or significant stenosis. Renal arteries: No occlusion or significant stenosis. Right iliac arteries: No occlusion or significant stenosis. Right femoral/popliteal arteries: Focal plaque with greater than 90% stenosis of the inferior right popliteal artery, series 5, image 202, series 11, image 200, series 10, image 121. Right infrapopliteal arteries: One-vessel runoff comprised of the peroneal artery. The peroneal artery perfuses the dorsalis pedis artery, series 5, image 484. Perfusion of the posterior tibial artery to the level of the mid calf, series 17, image 83. Occlusion of the proximal 1.3 cm of the right anterior tibial artery, series 4, image 936 with recanalization for a distance of 4.7 cm. No distal flow beyond that point. Left iliac arteries: No occlusion or significant stenosis. Left femoral/popliteal arteries: No occlusion or significant stenosis. Left infrapopliteal arteries: Two-vessel runoff of the distal left lower extremity comprising the anterior tibial and posterior tibial arteries. Patency of the proximal 2 cm of left peroneal artery. No visible flow distal to that point. Lungs: There is motion artifact during the imaging of the lower chest. There appears to be mild dependent atelectasis in both lungs. Heart: The heart is unremarkable. No cardiomegaly. No pericardial effusion. Esophagus: The visible esophagus is unremarkable. Liver: Liver is unremarkable. Gallbladder and biliary ducts: The gallbladder and biliary tree are unremarkable. Pancreas: Mild diffuse atrophy of the pancreas. The pancreatic duct is normal in size. Spleen: 16 mm hypodensity of the anterior spleen, series 4, image 61 consistent with cyst or hemangioma. Adrenal glands: The adrenal glands are unremarkable. Kidneys and ureters: Multiple areas of focal cortical scarring in both kidneys. Small cysts of both kidneys. The ureters are unremarkable. Stomach and bowel: The stomach and bowel are unremarkable. Appendix: Not visible. No secondary signs of appendicitis. Urinary bladder: The urinary bladder is unremarkable. Reproductive: Reproductive system is unremarkable. Intraperitoneal space: No intraperitoneal free fluid or fluid collection. There is no free air. Lymph nodes: No enlarged lymph nodes. Bones/joints: There is mild spondylosis. Soft tissues: There is a small fat containing left direct inguinal hernia. There is a small fat containing left indirect inguinal hernia. CT/CT angio abd aorta runof [id number] IMPRESSION: 1. One-vessel runoff of the distal right lower extremity comprised of the peroneal artery. 2. Two-vessel runoff of the left lower extremity comprised of the anterior tibial and posterior tibial arteries. 3. Estimated greater than 90% stenosis of the lower popliteal artery. 4. Occlusion of the proximal 1.3 cm of the right anterior tibial artery with recanalization for a distance of 4.7 cm. 5. Flow within the proximal 2 cm of the left peroneal artery only. 6. No significant pathology of the arteries of the abdomen or pelvis. 7. There is no acute abdominal or pelvic pathology.
[2025-02-14 12:29] LABS: Hematocrit 46.8 % (37-53); Hemoglobin 16.00 g/dL (11.27-16.99); Mean Corpuscular HGB Conc 34.2 g/dL (30-55); Mean Corpuscular Hemoglobin 29.6 pg (27-33); Mean Corpuscular Volume 86.7 fl (82-101); Nucleated Red Blood Cells % 0 %; Platelet Count 262 10^3/cmm (157-399); Red Blood Count 5.40 10^6/uL (3.85-5.65); White Blood Count 16.27 10^3/uL (3.29-11.43)
[2025-02-14] MEDS: iohexol 350 mg/mL 500 mL Btl (per mL) IV (12:30)
[2025-02-14 12:46] LABS: INR 0.98 (0.8-1.2); Prothrombin Time 13.60 SECONDS (12.1-14.9)
[2025-02-14] MEDS: heparin 5,000 unit/mL INJ 1 mL IVP (12:50)
[2025-02-14 12:51] LABS: Alanine Aminotransferase 22 U/L (0-41); Albumin Level 3.9 g/dL (3.5-5.2); Alkaline Phosphatase 84 U/L (40-130); Anion Gap 12.2 (5-19); Aspartate Amino Transferase 19 U/L (0-40); Blood Urea Nitrogen 13 mg/dL (6-20); Calcium 8.1 mg/dL (8.5-10.5); Carbon Dioxide 23 mmol/L (22-29); Chloride 107 mmol/L (98-107); Creatinine Clr Calc Pharmacy 128.8519; Globulin 2.8 g/dL (1.3-4.6); Glucose 96 mg/dL (65-115); Osmolality Calculated 286 mOsm/kg (285-295); Potassium 4.2 mmol/L (3.5-5.1); Sodium 138 mmol/L (136-145); Total Protein 6.7 g/dL (6.6-8.7)
[2025-02-14] MEDS: heparin drip 25,000 UNIT/500 ML PREMIX 24 UNIT IV (12:55)
[2025-02-14 12:56] VITALS: BP 103/63; PULSE 61; RESP 18; O2SAT 91
--- NOTE | 2025-02-14 12:56 | PC.NURSE ---
THIS NURSE VERIFIED PATIENT HEPARIN DRIP TO START AT 24 ML/HR.
[2025-02-14 13:30] VITALS: BP 101/56; PULSE 56; O2SAT 91
[2025-02-14 15:40] VITALS: BP 101/55; PULSE 89; O2SAT 91
== END 2025-02-14 15:35 | disposition short-term general hospital (02) ==
PROVIDERS: Emergency Provider Emergency Medicine; PCP Nurse Practitioner
DX: I70.291 Other atherosclerosis of native arteries of extremities, right leg (principal); I70.92 Chronic total occlusion of artery of the extremities; I70.201 Unspecified atherosclerosis of native arteries of extremities, right leg
CPT/HCPCS: 36416; 75635; 80053; 82962; 85025; 85610; 93926; 96374; 99285; J1644; J9999